=== PATIENT | female | born 1995 | race Caucasian/White ===

== ENCOUNTER 2017-06-14 10:15 | Emergency (ER) | payer BC ==
[2017-06-14 10:46] VITALS: BP 131/62; BMI 42.9
--- NOTE | 2017-06-14 11:23 | DR.GENAD ---
HPI - PCP Primary Care Physician: RADHA - HPI Comment HPI Comment: WORSE TODAY. NO FEVER, DYSURIA OR HEMATURIA. - Complaint/Symptoms Chief Complaint Doctors Comments: INCREASING ABDOMINAL PAIN WITH NAUSEA IN UPPER ABDOMEN AND EPIGASTRIUM. ARIA FOR 2 WEEKS. Chief Complaint:: PT C/O N/V EPIGASTRIC PAIN. PT STATES SHE HAS BEEN HAVING THIS PROBLEM FOR 2 WEEKS,BUT SHE IS HAVING SEVERE PAIN THAT STARTED THIS AM. PT STATES SHE HAS VOMITTED X4 TIMES IN THE PAST 24 HOURS. - Nurses notes reviewed Nurses Notes Review: Yes - Source History Provided: Patient - Mode of Arrival Mode of Arrival: Ambulatory - Timing Onset of Chief Complaint: 06/14/17 Came on: Suddenly - Duration Duration: Constant Duration: Days - Severity Severity: Moderate PMH - PMH Past Medical History: No Past Surgical History: No - Family History History of Family Medical Conditions: Yes Family Medical History: Diabetes Mellitus - Social History Does any household member use tobacco: No Alcohol Use: None Do you use any recreational Drugs:: No Lives With: Family Lives Where: Home - infectious screening In the last 2 months have you had wt loss of >10#?: NO Have you had fever, night sweats or hemotysis?: No Have you traveled outside the country in the last 6 months?: No Isolation: Standard ROS - Review of Systems Constitutional: No Symptoms Reported Eyes: No Symptoms Reported ENTM: No Symptoms Reported Respiratoy: No Symptoms Reported Cardiovascular: No Symptoms Reported Gastrointestinal/Abdominal: Abdominal Pain, Nausea Genitourinary: No Symptoms Reported Neurological: No Symptoms Reported Musculoskeletal: No Symptoms Reported Integumentary: No Symptoms Reported Hematologic/Lymphatic: No Symptoms Reported Endocrine: No Symptoms Reported All Other Systems: Reviewed and Negative PE - Vital Signs Vitals: Temperature 97.7 F Pulse Rate 68 Respiratory Rate 20 Blood Pressure 131/62 O2 Sat by Pulse Oximetry 99 - General Limitations: No Limitations General Appearance: Alert - Head Head Exam: Normal Inspection - Eyes Eye exam: Normal Appearance - ENT ENT Exam: Normal External Ear Exam External Ear Exam: Normal External Inspection TM/Canal Exam: Bilateral Normal Nose Exam: Normal Nose Exam Mouth Exam: Normal Inspection - Neck Neck Exam: Trachea Midline - Chest Chest Inspection: Symmetric Chest Wall Rise - Respiratory Respiratory Exam: Normal Lung Sounds Bilat Respiratory Exam: Bilateral Clear to Auscultation - Cardiovascular Cardiovascular Exam: Regular Rate, Normal Rhythm, Normal Heart Sounds - Abdominal Exam Abdominal Exam: Normal Bowel Sounds, Soft, Tenderness Abdominal Tenderness: Epigastrium, Moderate - Extremities Extremities Exam: Normal Inspection - Back Back Exam: Normal Inspection, Vertebral Tenderness MDM - Additional Information Additional Information Obtained From: Family - Differential Diagnosis Differential Diagnosis: ABDOMINAL PAIN, PUD, PANCREATITIS, BOWEL OBSTRUCTION, UTI, KIDNEY STONE. Course - Treatment Treatment: SEE ORDERS. - Education/Counseling Education/Counseling: Patient, Family, Education Educated On: Diagnosis, Needs for Follow Up ROR - Labs Reviewed Laboratory Results Reviewed?: Yes Result Diagrams: 06/14/17 11:50 06/14/17 11:50 Laboratory: WBC 8.7 X10^3/uL (3.6-10.0) 06/14/17 11:50 RBC 5.08 X10^6/uL (3.5-5.4) 06/14/17 11:50 Hgb 14.6 g/dL (12.0-16.0) 06/14/17 11:50 Hct 43.0 % (36.0-47.0) 06/14/17 11:50 MCV 84.6 fL (80.0-100.0) 06/14/17 11:50 MCH 28.7 pg (27.0-34.0) 06/14/17 11:50 MCHC 33.9 g/dL (33.0-35.0) 06/14/17 11:50 RDW 13.3 % (11.6-16.5) 06/14/17 11:50 Plt Count 321 X10^3/uL (150.0-450.0) 06/14/17 11:50 MPV 8.3 fL (7.4-11.0) 06/14/17 11:50 Neut % 68.5 % (42.0-75.0) 06/14/17 11:50 Lymph % 24.7 % (21.0-51.0) 06/14/17 11:50 Vermilion % 5.4 % (0.0-13.0) 06/14/17 11:50 Eos % 1.2 % (0.9-2.9) 06/14/17 11:50 Baso % 0.2 % (0.2-1.0) 06/14/17 11:50 Neut # 5.9 x10^3/uL (2.2-4.8) H 06/14/17 11:50 Lymph # 2.1 X10^3/uL (1.3-2.9) 06/14/17 11:50 Vermilion # 0.5 x10^3/uL (0.3-0.8) 06/14/17 11:50 Eos # 0.1 x10^3/uL (0.0-0.2) 06/14/17 11:50 Baso # 0.0 X10^3/uL (0.0-0.1) 06/14/17 11:50 Absolute Nucleated RBC 0.0 /100WBC 06/14/17 11:50 Sodium 141 mmol/L (136-145) 06/14/17 11:50 Corrected Sodium TNP 06/14/17 11:50 Potassium 3.8 mmol/L (3.5-5.1) 06/14/17 11:50 Chloride 106 mmol/L (98-107) 06/14/17 11:50 Carbon Dioxide 26.7 mmol/L (21-32) 06/14/17 11:50 BUN 10 mg/dL (7-18) 06/14/17 11:50 Creatinine 0.81 mg/dL (0.55-1.02) 06/14/17 11:50 Est GFR (MDRD) Af Amer > 60 (>60) 06/14/17 11:50 Est GFR (MDRD) Non-Af > 60 (>60) 06/14/17 11:50 Glucose 88 mg/dL (65-99) 06/14/17 11:50 Calcium 9.1 mg/dL (8.5-10.1) 06/14/17 11:50 Corrected Calcium TNP 06/14/17 11:50 Total Bilirubin 0.20 mg/dL (0.2-1.0) 06/14/17 11:50 AST 18 Units/L (15-37) 06/14/17 11:50 ALT 24 Units/L (12-78) 06/14/17 11:50 Alkaline Phosphatase 66 Units/L (46-116) 06/14/17 11:50 Total Protein 7.8 g/dL (6.4-8.2) 06/14/17 11:50 Albumin 3.9 g/dL (3.4-5.0) 06/14/17 11:50 Globulin 3.9 g/dL (2.5-4.5) 06/14/17 11:50 Albumin/Globulin Ratio 1.0 Ratio (1.1-2.1) L 06/14/17 11:50 Amylase 36 Units/L (25-115) 06/14/17 11:50 Lipase 86 Units/L (73-393) 06/14/17 11:50 HCG, Qual Negative <10 mIU/mL 06/14/17 11:50 Specimen Type Clean catch urine 06/14/17 11:36 Urine Color Yellow (YELLOW) 06/14/17 11:36 Urine Appearance Cloudy (CLEAR) 06/14/17 11:36 Urine pH 6.0 (5.0 - 8.0) 06/14/17 11:36 Ur Specific [place] 1.020 (1.000-1.030) 06/14/17 11:36 Urine Protein 2+ (NEGATIVE) 06/14/17 11:36 Urine Glucose (UA) Negative (NEGATIVE) 06/14/17 11:36 Urine Ketones Negative (NEGATIVE) 06/14/17 11:36 Urine Occult Blood 4+ (NEGATIVE) 06/14/17 11:36 Urine Nitrite Negative (NEGATIVE) 06/14/17 11:36 Urine Bilirubin Negative (NEGATIVE) 06/14/17 11:36 Urine Urobilinogen Normal (NORMAL) 06/14/17 11:36 Ur Leukocyte Esterase 3+ (NEGATIVE) 06/14/17 11:36 Urine RBC 05 - 10 /HPF (NEGATIVE) 06/14/17 11:36 Urine WBC Tntc with clumps /HPF (NEGATIVE) 06/14/17 11:36 Ur Squamous Epith Cells Many /HPF (NEGATIVE) 06/14/17 11:36 Amorphous Sediment Trace /HPF (NEGATIVE) 06/14/17 11:36 Urine Bacteria Trace /HPF (NEGATIVE) 06/14/17 11:36 Ur Culture Indicated? Yes/culture set up 06/14/17 11:36 H. pylori IgG Antibody Positive (NEGATIVE) A 06/14/17 11:50 - Diagnosis Discharge Problem: Helicobacter pylori ab+ Abdominal pain Qualifiers: Abdominal location: epigastric Qualified Code(s): R10.13 - Epigastric pain UTI (urinary tract infection) Qualifiers: Urinary tract infection type: site unspecified Hematuria presence: with hematuria Qualified Code(s): N39.0 - Urinary tract infection, site not specified ; R31.9 - Hematuria, unspecified; R31.9 - Hematuria, unspecified - Discharge Plan Disposition: HOME, SELF-CARE Condition: Stable Prescriptions: Ibuprofen [MOTRIN TAB 800 MG *] 800 mg PO Q8H PRN #20 tab PRN Reason: Pain/Inflammation Ranitidine HCl [ZANTAC TAB 150 MG *] 150 mg PO BID #60 tab Sulfamethoxazole-Trimethoprim [BACTRIM DS TAB 800/160 MG *] 1 tab PO BID #20 tab - Follow ups/Referrals Follow ups/Referrals: NFD,None [Primary Care Provider] - 3 days - Instructions Instructions: Urinary Tract Infection, Adult, [id number], Abdominal Pain, Adult, [id number]
[2017-06-14 11:59] LABS: BASOPHILS % (AUTO) 0.2 % (0.2-1.0); EOSINOPHILS # (AUTO) 0.1 x10^3/uL (0.0-0.2); EOSINOPHILS % (AUTO) 1.2 % (0.9-2.9); HEMOGLOBIN 14.6 g/dL (12.0-16.0); LYMPHOCYTES # (AUTO) 2.1 X10^3/uL (1.3-2.9); LYMPHOCYTES % (AUTO) 24.7 % (21.0-51.0); MEAN CORPUSCULAR HEMOGLOBIN 28.7 pg (27.0-34.0); MEAN CORPUSCULAR HGB CONC 33.9 g/dL (33.0-35.0); MEAN CORPUSCULAR VOLUME 84.6 fL (80.0-100.0); MEAN PLATELET VOLUME 8.3 fL (7.4-11.0); MONOCYTES # (AUTO) 0.5 x10^3/uL (0.3-0.8); MONOCYTES % (AUTO) 5.4 % (0.0-13.0); NEUTROPHILS # (AUTO) 5.9 x10^3/uL (2.2-4.8); NEUTROPHILS % (AUTO) 68.5 % (42.0-75.0); PLATELET COUNT 321 X10^3/uL (150.0-450.0); RED BLOOD COUNT 5.08 X10^6/uL (3.5-5.4); RED CELL DISTRIBUTION WIDTH 13.3 % (11.6-16.5); WHITE BLOOD COUNT 8.7 X10^3/uL (3.6-10.0)
[2017-06-14 12:02] LABS: BILIRUBIN,URINE NEGATIVE (NEGATIVE); BLOOD/HEMOGLOBIN,URINE 4+ (NEGATIVE); GLUCOSE, URINE NEGATIVE (NEGATIVE); KETONES,URINE NEGATIVE (NEGATIVE); LEUKOCYTE ESTERASE ,URINE 3+ (NEGATIVE); NITRITES,URINE NEGATIVE (NEGATIVE); PROTEIN,URINE 2+ (NEGATIVE); UROBILINOGEN,URINE NORMAL (NORMAL)
[2017-06-14 12:10] LABS: ALANINE AMINOTRANSFERASE 24 Units/L (12-78); ALBUMIN 3.9 g/dL (3.4-5.0); ALKALINE PHOSPHATASE 66 Units/L (46-116); AMYLASE 36 Units/L (25-115); ASPARTATE AMINO TRANSFERASE 18 Units/L (15-37); BLOOD UREA NITROGEN 10 mg/dL (7-18); CALCIUM 9.1 mg/dL (8.5-10.1); CARBON DIOXIDE 26.7 mmol/L (21-32); CHLORIDE 106 mmol/L (98-107); CREATININE 0.81 mg/dL (0.55-1.02); LIPASE 86 Units/L (73-393); SODIUM 141 mmol/L (136-145); TOTAL PROTEIN 7.8 g/dL (6.4-8.2); eGFR BLACK RACES > 60 (>60); eGFR NON BLACK RACES > 60 (>60)
[2017-06-14 12:10] LABS: APPEARANCE,URINE CLOUDY (CLEAR); COLOR,URINE YELLOW (YELLOW)
[2017-06-14 12:21] LABS: AMORPHOUS SEDIMENT,UR TRACE /HPF (NEGATIVE); BACTERIA,URINE TRACE /HPF (NEGATIVE); SQUAMOUS EPITHELIAL CELL,UR MANY /HPF (NEGATIVE)
[2017-06-14 12:46] LABS: SERUM PREGNANCY TEST, QUAL NEGATIVE <10 mIU/mL
== END 2017-06-14 12:58 | disposition home or self-care (01) ==
LOC: ER 10:41
DX: N39.0 Urinary tract infection, site not specified (principal); B96.81 Helicobacter pylori [H. pylori] as the cause of diseases classified elsewhere; R31.9 Hematuria, unspecified; R10.13 Epigastric pain
CPT/HCPCS: 36415; 80053; 81001; 82150; 83690; 84703; 85025; 86677; 87086; 99282; 99283